=== PATIENT | male | born 2005 | race Caucasian/White ===

== ENCOUNTER 2025-02-02 01:10 | Day surgery (SDC) | payer SELFPAY ==
[2025-02-02 01:27] LABS: BASOPHILS ABSOLUTE AUTO 0.04 K/uL (0.00-0.20); BASOPHILS PERCENT AUTO 0.3 % (0.0-1.0); EOSINOPHILS ABSOLUTE AUTO 0.15 K/uL (0.00-0.45); EOSINOPHILS PERCENT AUTO 1.1 % (0.0-6.0); IMMATURE GRAN ABSOLUTE AUTO 0.04 K/uL (0.00-0.05); IMMATURE GRAN PERCENT AUTO 0.3 % (0.0-0.4); LYMPHOCYTES ABSOLUTE AUTO 2.73 K/uL (1.00-4.80); LYMPHOCYTES PERCENT AUTO 19.4 % (24.0-44.0); MEAN PLATELET VOLUME 10.3 fL (9.4-12.4); MONOCYTES ABSOLUTE AUTO 0.84 K/uL (0.00-0.80); MONOCYTES PERCENT AUTO 6.0 % (0.0-8.0); NEUTROPHILS ABSOLUTE AUTO 10.24 K/uL (1.80-7.70); NEUTROPHILS PERCENT AUTO 72.9 % (41.0-71.0); NRBC ABSOLUTE 0.00 K/uL (0.00-0.02); NRBC PERCENT 0.0 /100WBC (0.0-0.2); PLATELET COUNT,PLT 219 K/uL (150-400); RED BLOOD CELL COUNT 5.54 M/uL (4.52-5.90); WHITE BLOOD CELL COUNT,WBC 14.04 K/uL (3.9-11.3)
[2025-02-02] MEDS: Sodium Chloride 0.9% 2.5 ML Syringe FLUSH PRN (01:31)
[2025-02-02] MEDS: Ondansetron 4 MG/2 ML SDV IVPUSH ONE (01:31)
[2025-02-02] MEDS: Sodium Chloride 0.9% 10 ML Syringe FLUSH PRN (01:32)
[2025-02-02] MEDS: Ketorolac 30 MG/ML SDV IVPUSH ONE ×2 (01:39→04:00)
[2025-02-02 01:51] LABS: A/G RATIO 1.5 (0.9-1.6); ALANINE AMINOTRANSFERASE,ALT 28.0 IU/L (14-63); ASPARTATE AMNIOTRANSFERASE,AST 26.0 IU/L (15-37); BILIRUBIN TOTAL 0.7 mg/dL (0.2-1.0); BLOOD UREA NITROGEN,BUN 16.0 mg/dL (7.0-18.0); CARBON DIOXIDE,CO2 28.4 mmol/L (21.0-32.0); CHLORIDE,CL 104.0 mmol/L (98-107); CREATININE 1.2 mg/dL (0.8-1.3); EST CRCL DRUG DOSING (CG) 89.44 mL/min; GLUCOSE RANDOM 99.0 mg/dL (74-106); POTASSIUM,K 3.4 mmol/L (3.5-5.1); PROTEIN TOTAL,TP 7.6 g/dL (6.4-8.2); SODIUM,NA 144.0 mmol/L (136-148)
[2025-02-02] MEDS: Iopamidol 755 MG/ML 500 ML Multipack Bottle IVPUSH STA (01:54)
[2025-02-02 02:04] LABS: ESTIMATED GFR 89.0 mL/min (>60)
[2025-02-02 02:17] LABS: APPEARANCE,URINE CLEAR; GLUCOSE,URINE NEGATIVE (NEGATIVE); OCCULT BLOOD,URINE NEGATIVE (NEGATIVE)
[2025-02-02] MEDS ORDERED: droPERidol 2.5 MG/ML SDV IVPUSH PRN (03:55)
[2025-02-02] MEDS ORDERED: fentaNYL 50 MCG/ML SDV IVPUSH PRN (05:23)
[2025-02-02] MEDS ORDERED: Albuterol 0.083% 2.5 MG/3 ML Neb Soln NEB PRN (05:23)
[2025-02-02] MEDS ORDERED: Ondansetron 4 MG/2 ML SDV IVPUSH PRN (05:23)
[2025-02-02] MEDS ORDERED: Naloxone 0.4 MG/ML SDV IVPUSH PRN (05:23)
[2025-02-02] MEDS ORDERED: Propofol 200 MG/20 ML SDV ONE (05:36)
[2025-02-02] MEDS ORDERED: dexmedeTOMIDine HCl 200 MCG/2 ML SDV ONE (05:36)
[2025-02-02] MEDS ORDERED: fentaNYL 100 MCG/2 ML SDV ONE (05:36)
[2025-02-02] MEDS ORDERED: Ropivacaine 0.5% 5 MG/ML 30 ML SDV ONE (05:36)
[2025-02-02] MEDS ORDERED: Midazolam 1 MG/ML 2 ML SDV ONE (05:45)
[2025-02-02] MEDS ORDERED: Scopalamine 1mg/3day Transdermal Patch ONE (06:38)
[2025-02-02] MEDS ORDERED: Lidocaine 2% 11 ML Jelly Filled Syringe ONE (07:20)
[2025-02-02] MEDS ORDERED: Dexamethasone 4 MG/ML 5 ML MDV ONE (07:30)
== END 2025-02-02 11:25 | disposition home or self-care (01) ==
LOC: MW.ED 01:10 → MW.SDS 07:11
PROVIDERS: ATTEND Surgery
DX: K35.30 Acute appendicitis with localized peritonitis, without perforation or gangrene (principal); N32.89 Other specified disorders of bladder; D72.829 Elevated white blood cell count, unspecified; K59.00 Constipation, unspecified; E86.0 Dehydration
CPT/HCPCS: 36415; 44970; 64488; 74177; 80053; 81003; 83605; 83690; 85025; A9270; J0665; J1100; J1335; J1885; J2003; J2250; J2405; J2704; J2795; J3010; J7030; J7999; Q9967; 00840; 99284; J1171; J2371; J3490

== ENCOUNTER 2025-02-26 14:05 | Emergency (ER) | payer SELFPAY ==
[2025-02-26] MEDS ORDERED: Sodium Chloride 0.9% 2.5 ML Syringe FLUSH PRN (14:07)
[2025-02-26] MEDS ORDERED: Sodium Chloride 0.9% 10 ML Syringe FLUSH PRN (14:07)
[2025-02-26] MEDS: Ketorolac 30 MG/ML SDV IVPUSH ONE (15:28)
[2025-02-26 15:34] LABS: BASOPHILS ABSOLUTE AUTO 0.03 K/uL (0.00-0.20); BASOPHILS PERCENT AUTO 0.4 % (0.0-1.0); EOSINOPHILS ABSOLUTE AUTO 0.10 K/uL (0.00-0.45); EOSINOPHILS PERCENT AUTO 1.4 % (0.0-6.0); IMMATURE GRAN ABSOLUTE AUTO 0.01 K/uL (0.00-0.05); IMMATURE GRAN PERCENT AUTO 0.1 % (0.0-0.4); LYMPHOCYTES ABSOLUTE AUTO 2.37 K/uL (1.00-4.80); LYMPHOCYTES PERCENT AUTO 33.7 % (24.0-44.0); MEAN PLATELET VOLUME 11.0 fL (9.4-12.4); MONOCYTES ABSOLUTE AUTO 0.40 K/uL (0.00-0.80); MONOCYTES PERCENT AUTO 5.7 % (0.0-8.0); NEUTROPHILS ABSOLUTE AUTO 4.12 K/uL (1.80-7.70); NEUTROPHILS PERCENT AUTO 58.7 % (41.0-71.0); NRBC ABSOLUTE 0.00 K/uL (0.00-0.02); NRBC PERCENT 0.0 /100WBC (0.0-0.2); PLATELET COUNT,PLT 188 K/uL (150-400); RED BLOOD CELL COUNT 4.92 M/uL (4.52-5.90); WHITE BLOOD CELL COUNT,WBC 7.03 K/uL (3.9-11.3)
[2025-02-26 15:59] LABS: A/G RATIO 1.6 (0.9-1.6); ALANINE AMINOTRANSFERASE,ALT 30 IU/L (14-63); ASPARTATE AMNIOTRANSFERASE,AST 30 IU/L (15-37); BILIRUBIN TOTAL 0.6 mg/dL (0.2-1.0); BLOOD UREA NITROGEN,BUN 12 mg/dL (7.0-18.0); CARBON DIOXIDE,CO2 27.4 mmol/L (21.0-32.0); CHLORIDE,CL 104 mmol/L (98-107); CREATININE 1.0 mg/dL (0.8-1.3); EST CRCL DRUG DOSING (CG) 111.17 mL/min; GLUCOSE RANDOM 89 mg/dL (74-106); POTASSIUM,K 3.3 mmol/L (3.5-5.1); PROTEIN TOTAL,TP 7.5 g/dL (6.4-8.2); SODIUM,NA 141 mmol/L (136-148)
[2025-02-26 16:07] LABS: ESTIMATED GFR 111 mL/min (>60)
[2025-02-26 16:13] LABS: APPEARANCE,URINE CLEAR; GLUCOSE,URINE NEGATIVE (NEGATIVE); OCCULT BLOOD,URINE NEGATIVE (NEGATIVE)
== END 2025-02-26 17:18 | disposition home or self-care (01) ==
LOC: MW.ED 14:05
DX: K59.00 Constipation, unspecified (principal); Z79.899 Other long term (current) drug therapy; Z90.49 Acquired absence of other specified parts of digestive tract
CPT/HCPCS: 36415; 74018; 80053; 81003; 83690; 85025; 85652; 86140; 96361; 96374; 99284; A9270; J1885; J7030; 99283